=== PATIENT | male | born 1965 | race Caucasian/White ===

== ENCOUNTER 2020-12-08 12:12 | Outpatient (CLI) | payer BC | END 2020-12-08 12:13 | disposition home or self-care (01) | LOC: BICRAD 12:12 | PROVIDERS: ATTEND Family Medicine | DX: M47.816 Spondylosis without myelopathy or radiculopathy, lumbar region (principal); M51.36 Other intervertebral disc degeneration, lumbar region; S76.912A Strain of unspecified muscles, fascia and tendons at thigh level, left thigh, initial encounter; M79.18 Myalgia, other site | CPT/HCPCS: 72100 ==